=== PATIENT | male | born 1985 | race Two or more races ===

== ENCOUNTER 2017-03-08 01:46 | Emergency (ER) | payer MEDICAID ==
[~2017-03-08] VITALS: Ht 182.9 cm; Wt 86.2 kg
[2017-03-08 01:55] VITALS: BP 125/79
--- NOTE | 2017-03-08 02:26 | Emergency Room Report ---
History of Present Illness General Chief Complaint: General Complaint Source: Patient Present Illness HPI Patient presents with pain in his left elbow. 2 weeks ago he fell and had sutures in his lower abdomen and also in the elbow. Dissolvable stitches were place. Superficial sutures removed recently. Yesterday he drained clear/ serosanguineous material out of the elbow area. He states there was no pus. He stopped taking antibiotics 4 days ago. There is redness swelling and pain in his forearm. He has not been elevating the hand or elbow. The pain is reported 10/10, aching, constant. No fevers or chills. The pain does not radiate. He states the discomfort prevents him from working (though he is currently unemployed). The wound on the abdomen is healing without difficulty. Tetanus up to date. No other somatic symptoms. He states "they treated the cuts like stab wounds" but claims they occurred due to a fall. 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 Reviewed Nursing Documentation: PMH: Agreed, PSxH: Agreed Review of Systems All Other Systems: negative except mentioned in HPI Physical Exam Vital Signs Date Time Temp Pulse Resp B/P (MAP) Pulse Ox O2 Delivery O2 Flow Rate FiO2 03/08/17 01:48 97.7 105 18 127/81 98 Sp02 EP Interpretation: reviewed, normal General Appearance: well appearing, no apparent distress, GCS 15, non-toxic Head: normocephalic, atraumatic Eyes: bilateral eye normal inspection, bilateral eye PERRL ENT: hearing grossly normal, normal voice Neck: full range of motion, supple Respiratory: no respiratory distress, speaking full sentences Gastrointestinal: normal bowel sounds, non tender, soft, other - Lac L flank - well healing Musculoskeletal: back normal, digits/nails normal, gait/station normal, normal range of motion, swelling - L elbow/olecronon bursa with minimal to no effusion - ROM is full of elbow Neurologic: alert, normal gait Psychiatric: mood/affect normal Skin: other - erythema of elbow suture area, no fluctuance Medical Decision Making Diagnostic Impression: Primary Impression: Cellulitis of left elbow Additional Impression: Post-surgical infection ER Course Patient presents with pain, redness and swelling where he received sutures (and subQ sutures). DDX: cellulitis, foreign body reaction (sutures), olecranon bursitis amongst others. Needs antibiotics. No evidence of septic joint at this time. (Exam inconsistent with reported level of pain.) Treated with analgesia along with antibiotics. Discussed with patient nature of infection and plan to start antibiotics. Also discussed that subQ sutures might need to be removed and recommended follow up at ED where they were placed. Patient stable for outpatient observation and treatment. Last Vital Signs Date Time Temp Pulse Resp B/P (MAP) Pulse Ox O2 Delivery O2 Flow Rate FiO2 03/08/17 03:29 88 16 122/71 99 Room Air 03/08/17 03:25 97.8 Status: improved Disposition: HOME, SELF-CARE Condition: Improved Scripts Ibuprofen* (MOTRIN*) 600 Mg Tablet 600 MG ORAL Q6H Y for For Pain, #20 TAB Prov: Nathaniel Ma M.D. 03/08/17 Bacitracin (Bacitracin) 28.4 Gm Oint...g. 1 APPLIC TOPIC BID, #10 GM Prov: Nathaniel Ma M.D. 03/08/17 Trimethoprim/Sulfamethoxazole 160/800* (BACTRIM DS TABLET*) 1 Each Tablet 1 TAB ORAL Q12H, #14 TAB 0 Refills Prov: Nathaniel Ma M.D. 03/08/17 Referrals: DANIEL BRASWELL,REFERRING (PCP) Nathaniel Ma M.D. Mar 08, 2017 02:26
[2017-03-08] MEDS ORDERED: BACTRIM DS TAB1 EAC1 ORAL (02:29)
[2017-03-08] MEDS ORDERED: BACITRACIN15 GM TOPIC (02:29)
[2017-03-08] MEDS ORDERED: IBUPROFEN600 MG ORAL (02:29)
[2017-03-08] MEDS ORDERED: Bacitracin Oint UD TOPIC ONE (02:30)
[2017-03-08] MEDS ORDERED: Bactrim DS (160mg/800mg) tab ORAL ONE (02:30)
[2017-03-08 03:05] VITALS: BP 122/71
[2017-03-08 03:29] VITALS: BP 122/71
== END 2017-03-08 03:07 | disposition home or self-care (01) ==
LOC: EMR 02:14
DX: T81.4XXA Infection following a procedure, initial encounter (principal); L03.114 Cellulitis of left upper limb; F17.200 Nicotine dependence, unspecified, uncomplicated
CPT/HCPCS: 99284

== ENCOUNTER 2017-10-08 04:34 | Emergency (ER) | payer MEDICAID ==
[~2017-10-08] VITALS: Ht 182.9 cm; Wt 93.4 kg
[~2017-10-08 04:34] MED LIST: BACITRACIN15 GM TOPIC; BACTRIM DS TAB1 EAC1 ORAL; IBUPROFEN600 MG ORAL
[2017-10-08] MEDS ORDERED: DOXYCYCLINE MO100 MG ORAL (05:13)
[2017-10-08] MEDS ORDERED: MUPIROCIN22 GM TOPIC (05:13)
--- NOTE | 2017-10-08 05:13 | Emergency Room Report ---
History of Present Illness General Chief Complaint: Lower Extremity Injury Source: Patient Present Illness [facility] This is a 32-year-old male with no past medical history. He presents with chief complaint of swelling to the left fifth toe. Onset for about a week now. Initially throbbing pain but now redness and swelling. He try to poke it with a needle was no drainage. Pain is throbbing in nature. 7 out of 10. No fever chills but no nausea no vomiting. No trauma. No history of this. Allergies: Coded Allergies: No Known Allergies (Unverified , 03/08/17) Patient History Past Medical History: see triage record, old chart reviewed Past Surgical History: none Pertinent Family History: none Social History: Denies: smoking Immunizations: other Reviewed Nursing Documentation: PMH: Agreed; PSxH: Agreed Review of Systems Eye: Denies: eye pain, blurred vision ENT: Denies: ear pain, nose congestion, throat swelling Respiratory: Denies: cough, shortness of breath Cardiovascular: Denies: chest pain, palpitations Gastrointestinal: Denies: abdominal pain, diarrhea, nausea, vomiting Musculoskeletal: Reports: joint swelling; Denies: back pain, joint pain Skin: Denies: rash Neurological: Denies: headache, numbness Endocrine: Denies: increased thirst, increased urine Hematologic/Lymphatic: Denies: easy bruising All Other Systems: negative except mentioned in HPI Physical Exam Vital Signs Date Time Temp Pulse Resp B/P (MAP) Pulse Ox O2 Delivery O2 Flow Rate FiO2 10/08/17 04:36 97.9 98 16 125/88 96 Room Air 97.9 vitals normal Sp02 EP Interpretation: reviewed, normal General Appearance: well appearing, no apparent distress, alert Head: normocephalic, atraumatic Eyes: bilateral eye PERRL, bilateral eye EOMI ENT: hearing grossly normal, normal pharynx Neck: full range of motion, supple, no meningismus Respiratory: chest non-tender, lungs clear, normal breath sounds Cardiovascular #1: regular rate, rhythm, no murmur Gastrointestinal: normal bowel sounds, non tender, no mass, no organomegaly, no bruit, non-distended Musculoskeletal: back normal, gait/station normal, normal range of motion, tender - Left fifth toe: There is erythema and edema. No pus palpated. Tender to palpation. No crepitance. Dorsalis pedis pulses 2+. No deformity. Neurologic: alert, oriented x3 Psychiatric: mood/affect normal Skin: warm/dry Medical Decision Making Diagnostic Impression: Primary Impression: Cellulitis of toe of left foot ER Course patient presents with a cellulitis of his toe. No evidence of any fracture dislocation. No abscess. No necrotizing fasciitis. We'll discharge home. Last Vital Signs Date Time Temp Pulse Resp B/P (MAP) Pulse Ox O2 Delivery O2 Flow Rate FiO2 10/08/17 04:36 97.9 98 16 125/88 96 Room Air 97.9 Status: improved Disposition: HOME, SELF-CARE Condition: Stable Scripts Doxycycline Monohydrate* (DOXYCYCLINE MONOHYDRATE*) 100 Mg Capsule 100 MG ORAL Q12H, #14 CAP 0 Refills Prov: CRUZITO PARKS M.D. 10/08/17 Mupirocin* (MUPIROCIN*) 22 Gm Oint...g. 1 APPLIC TOPIC THREE TIMES A DAY, #22 GM Prov: CRUZITO PARKS M.D. 10/08/17 Additional Instructions: Keep area clean. Follow-up your doctor in 2-3 days for recheck. Return if symptom worsen. CRUZITO PARKS M.D. Oct 08, 2017 05:13
[2017-10-08] MEDS ORDERED: Bacitracin Oint UD TOPIC ONE (05:15)
[2017-10-08 05:20] VITALS: BP 125/88
== END 2017-10-08 05:20 | disposition home or self-care (01) ==
LOC: EMR 04:40
DX: L03.032 Cellulitis of left toe (principal)
CPT/HCPCS: 99283

== ENCOUNTER 2017-10-29 06:03 | Emergency (ER) | payer MEDICAID ==
[~2017-10-29] VITALS: Ht 182.9 cm; Wt 95.3 kg
[~2017-10-29 06:03] MED LIST changes: +DOXYCYCLINE MO100 MG ORAL; +MUPIROCIN22 GM TOPIC
[2017-10-29] MEDS ORDERED: NKM (06:10)
[2017-10-29 06:24] VITALS: BP 152/84
[2017-10-29] MEDS ORDERED: Indomethacin 25mg cap ORAL ONE (07:00)
[2017-10-29 07:13] LABS: EOSINOPHILS % (AUTO) 1.9 % (0.0-3.0); HEMATOCRIT 39.9 % (42.0-52.0); HEMOGLOBIN 13.7 G/DL (14.2-18.0); LYMPHOCYTES % (AUTO) 26.8 % (20.0-45.0); MEAN CORPUSCULAR VOLUME 90 FL (80-99); NEUTROPHILS % (AUTO) 62.3 % (45.0-75.0); PLATELET COUNT 222 K/UL (150-450); RED BLOOD COUNT 4.42 M/UL (4.70-6.10); RED CELL DISTRIBUTION WIDTH 10.4 % (11.6-14.8); WHITE BLOOD COUNT 6.3 K/UL (4.8-10.8)
[2017-10-29 07:24] LABS: ANION GAP 7 mmol/L (5-15); BLOOD UREA NITROGEN 19 mg/dL (7-18); CARBON DIOXIDE 28 MMOL/L (21-32); CHLORIDE 106 MMOL/L (98-107); CREATININE 1.1 MG/DL (0.55-1.30); POTASSIUM 3.8 MMOL/L (3.5-5.1); SODIUM 141 MMOL/L (136-145)
[2017-10-29 07:29] LABS: ALANINE AMINOTRANSFERASE 40 U/L (12-78); ALBUMIN 3.9 G/DL (3.4-5.0); ALBUMIN/GLOBULIN RATIO 1.1 (1.0-2.7); ALKALINE PHOSPHATASE 63 U/L (46-116); ASPARTATE AMINO TRANSFERASE 24 U/L (15-37); BILIRUBIN,TOTAL 0.6 MG/DL (0.2-1.0)
--- NOTE | 2017-10-29 07:29 | Diagnostic Imaging Report ---
EXAM: XR Left Foot Complete, 3 Views CLINICAL HISTORY: PAIN TECHNIQUE: Frontal, lateral and oblique views of the left foot. COMPARISON: No relevant prior studies available. FINDINGS: Bones/joints: Unremarkable. No acute fracture. No dislocation. Soft tissues: Unremarkable. No radiopaque foreign body. IMPRESSION: No acute findings
[2017-10-29] MEDS ORDERED: Ascorbic Acid 500mg tab ORAL ONE (07:30)
[2017-10-29] MEDS ORDERED: IBUPROFEN600 MG ORAL (07:40)
[2017-10-29 07:59] VITALS: BP 152/84
--- NOTE | 2017-10-29 09:53 | Emergency Room Report ---
History of Present Illness General Chief Complaint: Pain Source: Patient Present Illness HPI Patient is a 32-year-old male who presented after increased foot pain. Patient for having increased pain to the left foot. This is located primarily at the plantar side of the pad. Patient also reports having some discoloration to the right lower extremity. Patient previous history of cellulitis. The patient had the been on antibiotics in the past. He denies any recent trauma. The patient has reportedly been ambulatory with continued pain. Allergies: Coded Allergies: No Known Allergies (Unverified , 03/08/17) Patient History Past Medical History: see triage record Reviewed Nursing Documentation: PMH: Agreed; PSxH: Agreed Nursing Documentation-PMH Past Medical History: No Stated History Review of Systems All Other Systems: negative except mentioned in HPI Physical Exam Vital Signs Date Time Temp Pulse Resp B/P (MAP) Pulse Ox O2 Delivery O2 Flow Rate FiO2 10/29/17 06:06 107 19 152/84 97 Room Air 10/29/17 07:59 98.0 General Appearance: well appearing, no apparent distress, alert, GCS 15 Head: normocephalic, atraumatic ENT: hearing grossly normal, normal voice Neck: full range of motion, supple Respiratory: no respiratory distress, speaking full sentences Gastrointestinal: normal inspection Musculoskeletal: no calf tenderness Neurologic: normal inspection, alert, oriented x3, responsive, destination specialist III-XII nml as tested, normal gait Psychiatric: mood/affect normal Skin: other - venous stasis changes to right lower extremity, minima swelling, no calf tenderness Medical Decision Making Diagnostic Impression: Primary Impression: Metatarsalgia of left foot Additional Impression: Venous stasis dermatitis ER Course Patient presented for foot pain. Differential diagnoses include was was not limited to cellulitis, foreign body, fracture, plantar fasciitis, vascular insufficiency, sprain. Because of complexity of patient's case laboratory testing and imaging studies were ordered. X-ray imaging of the left foot 3 views read by radiology, ndication pain showed normal bony alignment without evident fracture. Patient was given prescription for ibuprofen. The patient is advised to follow up with primary care doctor in 1-2 days. Patient is advised to return if any worsening condition or if any changes in status that are concerning. This report is dictated with [employer] inspector mechanical software which may occasionally lead to discrepancies related to use of this software. Labs Test 10/29/17 06:50 White Blood Count 6.3 K/UL (4.8-10.8) Red Blood Count 4.42 M/UL (4.70-6.10) Hemoglobin 13.7 G/DL (14.2-18.0) Hematocrit 39.9 % (42.0-52.0) Mean Corpuscular Volume 90 FL (80-99) Mean Corpuscular Hemoglobin 31.0 PG (27.0-31.0) Mean Corpuscular Hemoglobin Concent 34.3 G/DL (32.0-36.0) Red Cell Distribution Width 10.4 % (11.6-14.8) Platelet Count 222 K/UL (150-450) Mean Platelet Volume 7.6 FL (6.5-10.1) Neutrophils (%) (Auto) 62.3 % (45.0-75.0) Lymphocytes (%) (Auto) 26.8 % (20.0-45.0) Monocytes (%) (Auto) 8.0 % (1.0-10.0) Eosinophils (%) (Auto) 1.9 % (0.0-3.0) Basophils (%) (Auto) 1.0 % (0.0-2.0) Prothrombin Time 10.4 SEC (9.30-11.50) Prothromb Time International Ratio 1.0 (0.9-1.1) Activated Partial Thromboplast Time 26 SEC (23-33) Sodium Level 141 MMOL/L (136-145) Potassium Level 3.8 MMOL/L (3.5-5.1) Chloride Level 106 MMOL/L (98-107) Carbon Dioxide Level 28 MMOL/L (21-32) Anion Gap 7 mmol/L (5-15) Blood Urea Nitrogen 19 mg/dL (7-18) Creatinine 1.1 MG/DL (0.55-1.30) Estimat Glomerular Filtration Rate > 60 mL/min (>60) Glucose Level 107 MG/DL (74-106) Uric Acid 5.4 MG/DL (2.6-7.2) Calcium Level 9.0 MG/DL (8.5-10.1) Total Bilirubin 0.6 MG/DL (0.2-1.0) Aspartate Amino Transf (AST/SGOT) 24 U/L (15-37) Alanine Aminotransferase (ALT/SGPT) 40 U/L (12-78) Alkaline Phosphatase 63 U/L (46-116) Total Protein 7.3 G/DL (6.4-8.2) Albumin 3.9 G/DL (3.4-5.0) Globulin 3.4 g/dL Albumin/Globulin Ratio 1.1 (1.0-2.7) Last Vital Signs Date Time Temp Pulse Resp B/P (MAP) Pulse Ox O2 Delivery O2 Flow Rate FiO2 10/29/17 07:59 98.0 107 19 152/84 97 Room Air Status: improved Disposition: HOME, SELF-CARE Condition: Stable Scripts Ibuprofen* (MOTRIN*) 600 Mg Tablet 600 MG ORAL Q8H PRN for For Pain, #30 TAB 0 Refills Prov: Norberto Perez MD 10/29/17 Patient Instructions: Venous Stasis or Chronic Venous Insufficiency, Foot Contusion Norberto Perez MD Oct 29, 2017 09:53
== END 2017-10-29 08:00 | disposition home or self-care (01) ==
LOC: EMR 06:30
DX: L30.8 Other specified dermatitis (principal); I87.2 Venous insufficiency (chronic) (peripheral)
CPT/HCPCS: 36415; 80053; 84550; 85025; 85610; 85730; 99283